=== PATIENT | female | born 1980 | race African-American/Black ===

== ENCOUNTER 2019-09-22 05:44 | Day surgery (SDC) | payer BC, OTHER ==
[~2019-09-22] VITALS: Ht 160 cm; Wt 58.4 kg
[2019-09-22] MEDS ORDERED: LACTATED RINGERS 1,000 ML IV SCH (06:21)
[2019-09-22] MEDS ORDERED: FLUOCINOLONE EACH EAR (06:25)
[2019-09-22] MEDS ORDERED: PROG100C16 PO (06:25)
[2019-09-22] MEDS ORDERED: ESTR2TAB PO (06:25)
[2019-09-22] MEDS ORDERED: LEVO50TA5 PO (06:25)
[2019-09-22] MEDS ORDERED: CHLORHEXIDINE 15 ML UDC MM ONE (06:30)
[2019-09-22 06:57] VITALS: BP 117/77
[2019-09-22] MEDS ORDERED: MIDAZOLAM 1 MG/ML, 2ML ONE (06:57)
[2019-09-22] MEDS ORDERED: FENTANYL PF 250 MCG/5ML ONE (06:57)
[2019-09-22] MEDS ORDERED: OXYMETAZOLINE NASAL SPRAY 0.05%, 15ML ONE (07:05)
[2019-09-22] MEDS ORDERED: NEOSPORIN OINT, 15GM ONE (07:06)
[2019-09-22] MEDS ORDERED: LIDOCAINE 1%-EPI 1:100K, 20ML ONE (07:06)
[2019-09-22 07:17] LABS: HCG UR SG 1.002 (1.003-1.030)
[2019-09-22] MEDS ORDERED: DEXAMETHASONE 4 MG/ML, 1ML ONE (07:28)
[2019-09-22] MEDS ORDERED: SUCCINYLCHOLINE 20 MG/ML, 10ML ONE (07:28)
[2019-09-22] MEDS ORDERED: PROPOFOL 10 MG/ML, 20ML ONE (07:28)
[2019-09-22] MEDS ORDERED: ONDANSETRON 2MG/ML, 2ML ONE ×2 (07:28→08:27)
[2019-09-22] MEDS ORDERED: ACETAMINOPHEN 325 MG TABLET PO PRN (07:30)
[2019-09-22] MEDS ORDERED: OXYcodone 5 MG/5 ML ORAL.SOL UDC PO PRN (07:30)
[2019-09-22] MEDS ORDERED: ONDANSETRON 2MG/ML, 2ML IVPush PRN (07:30)
[2019-09-22] MEDS ORDERED: MEPERIDINE/PF 25MG/0.5ML IVPush PRN (07:30)
[2019-09-22] MEDS ORDERED: DEXAMETHASONE 4 MG/ML, 5ML ONE (08:27)
[2019-09-22] MEDS: FENTANYL PF 100 MCG/2ML IV PRN ×4 (08:36→08:56)
[2019-09-22] MEDS ORDERED: ACETAMINOPHEN 650 MG/20.3 ML UDC ONE (08:43)
[2019-09-22] MEDS ORDERED: OXYcodone 5 MG/5 ML ORAL.SOL UDC ONE (08:43)
[2019-09-22] MEDS ORDERED: FENTANYL PF 100 MCG/2ML ONE (08:46)
== END 2019-09-22 10:30 | disposition home or self-care (01) ==
LOC: OUT 05:44
PROVIDERS: ATTEND Otolaryngology
DX: J34.3 Hypertrophy of nasal turbinates (principal); J32.8 Other chronic sinusitis; J34.9 Unspecified disorder of nose and nasal sinuses; Z88.1 Allergy status to other antibiotic agents; Z88.8 Allergy status to other drugs, medicaments and biological substances; Z72.89 Other problems related to lifestyle; Z98.890 Other specified postprocedural states; Z79.899 Other long term (current) drug therapy
CPT/HCPCS: 30999; 31254; 31256; 31276; 81025; 88304; J0330; J1100; J2250; J2405; J2704; J3010; J3490; J7120